=== PATIENT | female | born 2000 | race Caucasian/White ===

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

== ENCOUNTER 2018-11-11 09:55 | Emergency (ER) | payer OTHER ==
[2018-11-11] MEDS ORDERED: Ondansetron INJ* 2 MG/ML VIAL IV ONE (10:15)
[2018-11-11] MEDS ORDERED: NS 0.9% 1000 ML** 1,000 ML IV ONE (10:15)
--- NOTE | 2018-11-11 10:23 | ED ---
Abdominal Pain/Female - HPI Summary HPI Summary: Patient is a 18-year-old female presenting to the ED with RLQ pain upon wakening this morning. She endorses nausea and vomiting. Endorses pain to the bilateral lower quadrants mildly, but to the right lower quadrant is a moderate to severe pain. Worse with palpation. Denies frequency or urgency. Denies any back pain. Denies any fevers, sweats, chills. Denies constipation or diarrhea. Denies any weakness. She states she did not eat anything abnormal. No vaginal bleeding or discharge. No history of abdominal surgeries. Last by mouth intake was last evening. - History of Current Complaint Chief Complaint: EDAbdPain Stated Complaint: "VOMITING PER SISTER" Time Seen by Provider: 11/11/18 10:00 Hx Obtained From: Patient ?: No Onset/Duration: Sudden Onset Timing: Constant Severity Initially: Moderate Severity Currently: Moderate Pain Intensity: 3 Pain Scale Used: 0-10 Numeric Location: Discrete At: RLQ Radiates: No Character: Sharp, Cramping Aggravating Factor(s): Other: - palpation Alleviating Factor(s): Nothing Associated Signs and Symptoms: Positive: Nausea, Vomiting - Risk Factors Ectopic Risk Factor: Negative Ovarian Torsion Risk Factor: Negative Allergies/Adverse Reactions: Allergies Allergy/AdvReac Type Severity Reaction Status Date / Time Bleach (Sodium Hypochlorite) Allergy Rash Verified 08/22/17 09:22 PMH/Surg Hx/FS Hx/Imm Hx Previously Healthy: Yes Endocrine/Hematology History: Denies: Hx Anticoagulant Therapy, Hx Diabetes Cardiovascular History: Denies: Hx Hypertension, Hx Pacemaker/ICD History: Denies: Hx Renal Disease Sensory History: Denies: Hx Hearing Aid Psychiatric History: Reports: Hx Panic Disorder - ANXIETY - Surgical History Surgery Procedure, Year, and Place: SPLEENECTOMY AGE 6 - Immunization History Hx Pertussis Vaccination: No Immunizations Up to Date: Yes Infectious Disease History: No Infectious Disease History: Denies: Traveled Outside the [place] in Last 30 Days - Family History Known Family History: Positive: Other - sleep apnea - Social History Occupation: Unemployed Lives: With Family Alcohol Use: None Hx Substance Use: No Substance Use Type: Reports: None Hx Tobacco Use: No Smoking Status (MU): Never Smoked Tobacco Review of Systems Constitutional: Negative Negative: Fever, Chills, Fatigue, Skin Diaphoresis Negative: Palpitations, Chest Pain Negative: Shortness Of Breath, Cough Positive: Abdominal Pain, Vomiting, Nausea. Negative: Diarrhea Genitourinary: Negative Positive: no symptoms reported, see HPI Negative: Arthralgia, Myalgia Neurological: Negative All Other Systems Reviewed And Are Negative: Yes Physical Exam Triage Information Reviewed: Yes Vital Signs On Initial Exam: Initial Vitals Temp Pulse Resp BP Pulse Ox 98.0 F 84 16 114/73 98 11/11/18 09:59 11/11/18 09:59 11/11/18 09:59 11/11/18 09:59 11/11/18 09:59 Vital Signs Reviewed: Yes Appearance: Positive: Well-Appearing, Well-Nourished Skin: Positive: Warm, Skin Color Reflects Adequate Perfusion Head/Face: Positive: Normal Head/Face Inspection Eyes: Positive: EOMI, AARON, Conjunctiva Clear Cardiovascular: Positive: RRR, Pulses are Symmetrical in both Upper and Lower Extremities Musculoskeletal: Positive: Strength/ROM Intact Neurological: Positive: Speech Normal Psychiatric: Positive: Affect/Mood Appropriate Diagnostics - Vital Signs Vital Signs Temp Pulse Resp BP Pulse Ox 11/11/18 09:59 98.0 F 84 16 114/73 98 - Laboratory Result Diagrams: 11/11/18 10:37 11/11/18 10:37 Lab Statement: Any lab studies that have been ordered have been reviewed, and results considered in the medical decision making process. Abdominal Pain Fem Course/Dx - Course Course Of Treatment: During the course treatment, the patient's evaluated for right lower quadrant pain which was acute onset this morning upon wakening. She is also endorsing nausea and vomiting. Denies any diarrhea or constipation. Labs obtained which is positive for increased WBC at 12,000. CT abdomen/pelvis obtained without contrast d/t patients BMI. This shows no evidence of acute appendicitis. There is moderate to large amount of free fluid in the cul-de-sac. Strong family history of ovarian cysts and hemorrhagic cysts. She states her menses is due in proximally 2 weeks and states she has pain at this time every month, however this has been the worst of the pain. No obstruction from the gallbladder, however has cholelithiasis. On reexamination, patient is feeling improved. Discussed treatment options with the patient. Discussed this was likely a hemorrhagic ruptured cyst. This patient is feeling improved, I am no longer concerned for ovarian torsion or appendicitis. Discussed also with the patient this likely could be mittelschmerz as she has this pain 2 weeks prior to her menses every month. UA shows a UTI. She will be discharged and treated with Macrobid twice a day 5 days. She is given information on ruptured cyst as well as mittejanellechmerz. She will follow-up with her [facility] who she has established. - Diagnoses Differential Diagnosis: Positive: Appendicitis, Constipation, Ovarian Cyst, Pelvic Inflammatory Disease, Urinary Tract Infection Provider Diagnoses: Ovarian cyst, UTI (urinary tract infection) Discharge - Sign-Out/Discharge Documenting (check all that apply): Patient Departure Patient Received Moderate/Deep Sedation with Procedure: No - Discharge Plan Condition: Stable Disposition: HOME Prescriptions: Nitrofurantoin Monohyd/M-Cryst [Macrobid 100 mg Capsule] 100 mg PO BID #10 cap Patient Education Materials: Leonardo (ED), Urinary Tract Infection in Women (ED), Ruptured Ovarian Cyst (ED) Referrals: Sonali Reid MD [Primary Care Provider] - Additional Instructions: Macrobid twice daily 5 days Please follow-up with [facility] regarding your abdominal pain/possible ovarian cyst - Billing Disposition and Condition Condition: STABLE Disposition: Home
[2018-11-11 11:04] LABS: ABS Basophils 0.1 10^3/ul (0-0.2); ABS Eosinophils 0.6 10^3/ul (0-0.6); ABS Lymphocytes 2.2 10^3/ul (1.0-4.8); ABS Monocytes 1.1 10^3/ul (0-0.8); ABS Neutrophils 8.1 10^3/ul (1.5-7.7); Eosinophil % 4.6 %; Hematocrit 40 % (35-47); Hemoglobin 14.6 g/dL (12.0-16.0); Lymphocyte % 18.6 %; Mean Corpuscular HGB Conc 36 g/dL (31-36); Mean Corpuscular Hemoglobin 31 pg (27-31); Mean Corpuscular Volume 85 fL (80-97); Mean Platelet Volume 7.7 fL (7.4-10.4); Nucleated Red Blood Cells % 0.3; Platelet Count 463 10^3/uL (150-450); Red Blood Count 4.77 10^6 /uL (3.70-4.87); Red Cell Distribution Width 15 % (10.5-15); White Blood Count 12.1 10^3/uL (3.5-10.8)
[2018-11-11 11:14] LABS: Albumin 4.2 g/dL (3.2-5.2); Albumin/Globulin Ratio 1.4 (1-3); BUN/Creatinine Ratio 19.7 (8-20); C Reactive Protein 4.76 mg/L (<8.01); Calcium 9.2 mg/dL (8.6-10.3); Potassium 3.8 mmol/L (3.5-5.0); Total Bilirubin 1.2 mg/dL (0.2-1.0); Total Protein 7.2 g/dL (6.4-8.9)
[2018-11-11] MEDS ORDERED: Ketorolac INJ* 30 MG/ML 1 ML VIAL IV PUSH ONE (11:28)
[2018-11-11] MEDS ORDERED: Metoclopramide IV* 5 MG/ML 2 ML VIAL IV ONE (11:31)
[2018-11-11 12:10] LABS: Urine Appearance Cloudy; Urine Bacteria Absent (Absent); Urine Bilirubin Negative (Negative); Urine Blood Negative (Negative); Urine Color Straw; Urine Glucose Negative (Negative); Urine Ketones Negative (Negative); Urine Nitrite Negative (Negative); Urine Protein Negative (Negative); Urine Red Blood Cell Trace(0-2/hpf) (Absent); Urine Specific Gravity 1.006 (1.010-1.030); Urine Squamous Epithelial Cell Present (Absent); Urine Urobilinogen Negative (Negative); Urine White Blood Cell 3+(>20/hpf) (Absent)
[2018-11-11 12:30] VITALS: BP 116/64
== END 2018-11-11 12:29 | disposition home or self-care (01) ==
LOC: ED 09:55
DX: N83.00 Follicular cyst of ovary, unspecified side (principal); N39.0 Urinary tract infection, site not specified; K80.20 Calculus of gallbladder without cholecystitis without obstruction; R11.2 Nausea with vomiting, unspecified; Z90.81 Acquired absence of spleen
CPT/HCPCS: 36415; 74176; 80053; 81003; 81015; 85025; 86140; 87086; 96361; 96374; 96375; 99283; J1885; J2405; J2765

== ENCOUNTER 2019-07-22 17:14 | Emergency (ER) | payer OTHER ==
[2019-07-22 17:47] LABS: Influenza B Molecular POSITIVE (Negative)
[2019-07-22 17:48] LABS: Rapid Strep Molecular Negative (Negative)
--- NOTE | 2019-07-22 20:45 | ED ---
Influenza-Like Illness - HPI Summary HPI Summary: The patient is a 18-year-old female presenting to [facility] [place] emergency department with a chief complaint of influenza-like symptoms for the last four days. She reports that her symptoms have gradually worsened with a sore throat, cough, and nausea without vomiting. Symptoms are currently rated 3/10 in severity. She has not taken any medications for treatment. Past medical history significant for hereditary spherocytosis and splenectomy. Nonsmoker, no alcohol use, no substance use. Medications reviewed. Allergies noted. - History of Current Complaint Chief Complaint: EDThroatPain Time Seen by Provider: 07/22/19 20:34 Hx Obtained From: Patient Onset/Duration: Lasting Days, Still Present Severity: Moderate Associated Signs & Symptoms: Cough, Sore Throat - Allergy/Home Medications Allergies/Adverse Reactions: Allergies Allergy/AdvReac Type Severity Reaction Status Date / Time Bleach (Sodium Hypochlorite) Allergy Rash Verified 07/22/19 17:32 PMH/Surg Hx/FS Hx/Imm Hx Endocrine/Hematology History: Reports: Other Endocrine/Hematological Disorders - hereditary spherocytosis Denies: Hx Anticoagulant Therapy, Hx Diabetes Cardiovascular History: Denies: Hx Hypertension, Hx Pacemaker/ICD History: Denies: Hx Renal Disease Sensory History: Denies: Hx Hearing Aid Psychiatric History: Reports: Hx Panic Disorder - ANXIETY - Surgical History Surgery Procedure, Year, and Place: SPLEENECTOMY AGE 6 Infectious Disease History: No Infectious Disease History: Denies: Traveled Outside the [place] in Last 30 Days - Family History Known Family History: Positive: Blood Disorder - hereditary spherocytosis , Other - sleep apnea - Social History Alcohol Use: None Hx Substance Use: No Substance Use Type: Reports: None Hx Tobacco Use: No Smoking Status (MU): Never Smoked Tobacco Review of Systems Positive: Sore Throat Positive: Cough Positive: Nausea. Negative: Vomiting All Other Systems Reviewed And Are Negative: Yes Physical Exam - Summary Physical Exam Summary: VITAL SIGNS: Reviewed. GENERAL: Patient is a well-developed and nourished female who is lying comfortable in the stretcher. Patient is not in any acute respiratory distress. HEAD AND FACE: No signs of trauma. No ecchymosis, hematomas or skull depressions. No sinus tenderness. EYES: PERRLA, EOMI x 2, No injected conjunctiva, no nystagmus. EARS: Hearing grossly intact. Ear canals and tympanic membranes are within normal limits. MOUTH: Oropharynx within normal limits. NECK: Supple, trachea is midline, no adenopathy, no JVD, no carotid bruit, no c- spine tenderness, neck with full ROM. CHEST: Symmetric, no tenderness at palpation. LUNGS: Clear to auscultation bilaterally. No wheezing or crackles. CVS: Regular rate and rhythm, S1 and S2 present, no murmurs or gallops appreciated. ABDOMEN: Soft, non-tender. No signs of distention. No rebound, no guarding, and no masses palpated. Bowel sounds are normal. EXTREMITIES: FROM in all major joints, no edema, no cyanosis or clubbing. NEURO: Alert and oriented x 3. No acute neurological deficits. Speech is normal and follows commands. SKIN: Dry and warm. Triage Information Reviewed: Yes Vital Signs On Initial Exam: Initial Vitals Temp Pulse Resp BP Pulse Ox 97.4 F 98 18 170/92 97 07/22/19 17:28 07/22/19 17:28 07/22/19 17:28 07/22/19 17:28 07/22/19 17:28 Vital Signs Reviewed: Yes Procedures - Sedation Patient Received Moderate/Deep Sedation with Procedure: No Diagnostics - Vital Signs Vital Signs Temp Pulse Resp BP Pulse Ox 07/22/19 17:28 97.4 F 98 18 170/92 97 - Laboratory Lab Results: Lab Results 07/22/19 07/22/19 Range/Units 17:32 17:32 Influenza A (Rapid) Not Reportable Influenza B (Rapid) Positive H (Negative) Group A Strep Rapid Negative (Negative) Lab Statement: Any lab studies that have been ordered have been reviewed, and results considered in the medical decision making process. Flu Symptom Course/Dx - Course Assessment/Plan: The patient is a 18-year-old female presenting to [facility] [place] emergency department with a chief complaint of influenza-like symptoms for the last four days. She reports that her symptoms have gradually worsened with a sore throat, cough, and nausea without vomiting. Symptoms are currently rated 3/ 10 in severity. She has not taken any medications for treatment. Past medical history significant for hereditary spherocytosis and splenectomy. Nonsmoker, no alcohol use, no substance use. Medications reviewed. Allergies noted. Physical exam reveals no acute abnormalities. Influenza B is positive. Rapid strep is negative. In the ED course, the patient was administered Zofran and started on a course of Tamiflu due to the patients medical history even though her symptoms began four days ago. I discussed all the results with the patient, and the patient understands and agrees with the plan for discharge. Patient is hemodynamically stable. Patient is discharged with follow up with PCP in 2-3 days. She is given a prescription for Tamiflu and Zofran. Patient agreeable with plan. Patient has no other complaints at this time. - Diagnoses Provider Diagnoses: Influenza B Discharge ED - Sign-Out/Discharge Documenting (check all that apply): Patient Departure - Patient will be discharged home. - Discharge Plan Condition: Stable Disposition: HOME Prescriptions: Ondansetron ODT TAB* [Zofran 4 MG Odt TAB*] 4 mg PO Q8H PRN #10 tab.odt PRN Reason: Vomiting Oseltamivir CAP* [Tamiflu CAP*] 75 mg PO BID #10 cap Patient Education Materials: Influenza (DC) Forms: *Work Release Referrals: Sonali Reid MD [Primary Care Provider] - 3 Days Additional Instructions: Please drink fluids to stay hydrated. Take Tamiflu and Zofran as prescribed. You may also take Ibuprofen and Tylenol for fevers and pain relief. Follow up with your primary care provider in 2-3 days. Return to the emergency department for any new or worsening symptoms. - Billing Disposition and Condition Condition: STABLE Disposition: Home - Attestation Statements Document Initiated by Brie: Yes Documenting Scribe: Bertha Gomez Provider For Whom Brie is Documenting (Include Credential): Dr. Berhane Hernandes MD Scribe Attestation: IBertha scribed for Dr. Berhane Hernandes MD on 07/24/19 at 0247. Scribe Documentation Reviewed: Yes Provider Attestation: The documentation as recorded by the Bertha green accurately reflects the service I personally performed and the decisions made by me, Dr. Berhane Hernandes MD Status of Scribcari Document: Viewed
[2019-07-22] MEDS ORDERED: Oseltamivir CAP* 75 MG CAP PO ONE (20:55)
[2019-07-22] MEDS ORDERED: Ondansetron ODT TAB* 4 MG SL PRN (20:55)
[2019-07-22 21:22] VITALS: BP 143/94
== END 2019-07-22 21:15 | disposition home or self-care (01) ==
LOC: ED 17:14
DX: J10.1 Influenza due to other identified influenza virus with other respiratory manifestations (principal); D58.0 Hereditary spherocytosis; Z90.81 Acquired absence of spleen; Z91.048 Other nonmedicinal substance allergy status
CPT/HCPCS: 87651; 99282; A9270-GY